=== PATIENT | male | born 1990 | race Caucasian/White ===

== ENCOUNTER 2023-04-24 08:01 | Outpatient (REF) | payer OTHER, SELFPAY ==
[2023-04-24 08:16] LABS: MANUAL DIFF FLAG NO
[2023-04-24 08:43] LABS: Basophils Percent Auto 0.3 % (0-2); Eosinophils Absolute Auto 0.2 X10*3/uL (0.0-0.4); Eosinophils Percent Auto 3.4 % (0-4); Hematocrit 39.6 % (42.0-52.0); Imm Gran Abs Auto 0.02 X10*3/uL (0.00-0.03); Imm Gran Pct Auto 0.3 % (0.0-0.4); Lymphocytes Absolute Auto 2.4 X10*3/uL (1.2-4.9); Lymphocytes Percent Auto 36.4 % (20-40); Mean Corpuscular HGB Conc 35.4 g/dl (31.0-36.0); Mean Corpuscular Hemoglobin 32.3 pg (27.0-33.0); Mean Corpuscular Volume 91.5 fL (80.0-98.0); Mean Platelet Volume 11.2 fL (9.4-12.4); Monocytes Absolute Auto 0.6 X10*3/uL (0.1-1.2); Monocytes Percent Auto 9.8 % (2-11); Neutrophils Absolute Auto 3.3 x10*3/uL (2.0-8.3); Neutrophils Percent Auto 49.8 % (45-73); Platelet Count 173 X10*3/uL (160-400); Red Blood Count 4.33 X10*6/uL (4.60-5.80); Red Cell Distribution Width 11.9 % (11.0-16.0); White Blood Count 6.6 X10*3/uL (4.8-10.8)
[2023-04-24 08:51] LABS: Amphetamine Screen Urine Not Detected (Not Detect); Barbiturates, Urine Not Detected (Not Detect); Benzodiazepines Screen Urine Not Detected (Not Detect); Cannabinoid Screen Urine POSITIVE (Not Detect); Cocaine Screen Urine Not Detected (Not Detect); Estimated Average Glucose 94 mg/dL; Fentanyl, urine Not Detected (Not Detect); Hemoglobin A1c % 4.9 % (<6.0); Opiate Screen Urine Not Detected (Not Detect); Phencyclidine Screen Urine Not Detected (Not Detect)
[2023-04-24 09:11] LABS: Alanine Aminotransferase 52 U/L (0-40); Albumin Level 4.2 g/dL (3.5-5.0); Alkaline Phosphatase 72 U/L (39-117); Anion Gap 11 (12-20); Aspartate Amino Transferase 51 U/L (5-37); Bilirubin Total 0.5 mg/dL (0.0-1.0); Blood Urea Nitrogen 13 mg/dL (9-16); Calcium 9.5 mg/dL (8.4-10.2); Carbon Dioxide 26 mmol/L (22-29); Chloride 104 mmol/L (96-108); Cholesterol 181 mg/dL (<200); Estimated Glomerular Filt Rate > 60; Glucose Fasting 93 mg/dL (60-99); HDL Cholesterol 81 mg/dL (>40); LDL Cholesterol Calculated 91 mg/dL (<100); Potassium 3.8 mmol/L (3.3-5.1); Sodium 137 mmol/L (135-145); Total Protein 7.2 g/dL (6.5-8.0); Triglycerides 49 mg/dL (<150)
[2023-04-24 09:23] LABS: Syphilis Screen Nonreactive (Nonreactive)
[2023-04-24 09:24] LABS: HBS Num1 27.15 mIU/mL (0-7.99); HBc Num1 0.09 S/CO (0.00-0.79); HBsAGNum1 0.25 S/CO (0.00-0.99); HIV AB/AG Nonreactive (Nonreactive); HIV Num 1 0.05 S/CO (0.00-0.99); Hepatitis B Core Antibody Nonreactive (Nonreactive); Hepatitis B Surface Antigen Negative (Negative); ~HepC Num1 0.09 S/CO (0.00-0.79); ~Hepatitis B Surface Antibody REACTIVE (Nonreactive); ~Hepatitis C Antibody Nonreactive (Nonreactive)
[2023-04-24 09:28] LABS: Vitamin B12 436 pg/mL (200-900)
[2023-04-24 09:30] LABS: Free T4 (Free Thyroxine) 0.99 ng/dL (0.71-1.85); Thyroid Stimulating Hormone 3.11 uIU/mL (0.32-4.0)
== END 2023-04-24 08:02 | disposition home or self-care (01) ==
LOC: HO.LAB 08:01
PROVIDERS: Visit Provider Psychiatry & Neurology Psychiatry
DX: F39 Unspecified mood [affective] disorder (principal)
CPT/HCPCS: 80053; 80061; 80307; 82607; 83036; 84439; 84443; 85025; 86704; 86706; 86780; 86803; 87340; 87389

== ENCOUNTER → 2023-04-25 11:45 | Outpatient (BNV) | payer OTHER, SELFPAY | PROVIDERS: Visit Provider Psychiatry & Neurology Psychiatry | DX: F31.81 Bipolar II disorder (principal); F43.10 Post-traumatic stress disorder, unspecified; F41.3 Other mixed anxiety disorders; F63.89 Other impulse disorders; F19.20 Other psychoactive substance dependence, uncomplicated | CPT/HCPCS: 90792; 99213; 99499 ==

== ENCOUNTER 2023-05-02 13:00 | Outpatient (RCR) | payer OTHER, SELFPAY ==
[2023-04-18 12:54] VITALS: BP 139/96; PULSE 102; RESP 12; TEMP 36.8
--- NOTE | 2023-04-18 14:24 | PC.NURSE ---
Pt is alert and oriented x 4, anxious, cooperative, engaging, well dressed and groomed. Pt states is currently not taking any medications and would like help with emotional imbalances and is looking for tools to succeed . Pt reports difficulty falling asleep with nightmares that will wake him. Pt reports decreased appetite without wt loss. Pt currently does not have a PCP, Psych Provider and is also interested in therapy. Pt reports has gone to AA in past and is willing to go again. Supports system is his significant other and cousin.
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
[2023-04-21 14:52] VITALS: BP 138/84; PULSE 100
--- NOTE | 2023-04-21 15:11 | HO.PHPPROGNO ---
Subjective Subjective Date of Service: 04/21/23 Reason For Visit: depression,AUD Interim History: Patient seen for follow-up. 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 I apologized for the misunderstanding as patient had agreed to consider starting on medication, as we had discussed a mood stabilizer (ABilify) in addition to starting on the prazosin for sleep/nightmares. He was understanding that I understood him taking the weekend to consider the medication options to include still considering whether to start on a sleep med. He was much less guarded today, much more forthcoming with his emotional struggles, he was tearful and earnest about the toll it has taken on him and his relationships as well as negatively impacting his functioning and ability to make any progress in life. He is agreeable to starting on Abilify, and we agreed to start very low (at 1 mg) given his naivete to medication. He denies any SI, HI, AH, VH. Attending Groups: Yes Review of Systems Acute medical concerns: No Mental Status Exam Mental Status Exam Narrative: Alert, oriented, in no acute distress. Eager, cooperative, engaged. Lively, animated, sometimes restless and asking permission to stand up. No psychomotor agitation or neurovegetative retardation. Eye contact maintained. Mood stressed depressed, affect labile. Speech abundant, without pressured or rapid speech, Thought process ruminative, circuitous, tangential without FOI or STEVEN, but sometimes unnecessarily descriptive style of speaking, requiring some redirection. No evidence of thought disorder. Thought content related to stressors, existential thoughts and angst, use of flowery/creative or overly intellectualized expressions and imagery. He expresses appreciation for people, interactions in groups, hopefulness, openness, also shares anxieties and some regrets, expresses feeling at times overwhelmed, emotionally dysregulated, overstimulated, underregulated attention, distractibility and executive dysfunction. Endorses transient hopelessness and helplessness, denies any passive SI or HI. No paranoia or delusional content elicited. No evidence of psychosis. Insight and judgment fair but adequate. Diagnostics Vital Signs (24Hr): Vital Signs - 24 hr 04/21/23 14:52 Pulse Rate 100 Blood Pressure 138/84 Assessment & Plan Assessment & Plan (1) Mood disorder: Status: Acute Code(s): F39 - Unspecified mood [affective] disorder (2) PTSD (post-traumatic stress disorder): Status: Acute Code(s): F43.10 - Post-traumatic stress disorder, unspecified (3) Polysubstance (excluding opioids) dependence: Status: Acute Code(s): F19.20 - Other psychoactive substance dependence, uncomplicated (4) Other impulse disorders: Status: Acute Code(s): F63.89 - Other impulse disorders (5) Other mixed anxiety disorders: Status: Acute Code(s): F41.3 - Other mixed anxiety disorders Plan start Abilify 2 mg (1/2 tablet for 2 days then increase to one tablet daily as tolerated) start prazosin 1 mg qhs patient declined pharmacological treatment for alcohol addiction. NTX, disulfarim, and other options reviewed Routine lab workand UDS pending (pt agrees to get lab work done after program today) Mass[place] reviewed conitnue to monitor Patient educated on: diagnosis, medication risk/benefits and substance abuse Informed Consent: understands Reason for contiued partial hosp. stay Substantial Risk for: inability to function, rapid decompensation and med/psych decompensation Certification I certify that partial hospital treatment is medically necessary due to the symptoms and problems resulting from the patient's mental illness and the failure to treat the patient at the partial hospital level of care would likely result in the patient requiring inpatient psychiatric care which could not be prevented at a less intensive level of care. Total time managing care of this patient today __30__ minutes. Discharge Plan Discharge Attending provider: Sybil Caicedo Additional Instructions: New PCP appointment with Dr Amna Sinclair on June 17, 2023 at 1:[address] [place] [address] [address]. [facility], [address]. Office Number [phone] Jasbir's OP therapy appointment with Dolores Ferrer through [facility] [place] [place] on May 05, 2023 at 11 AM at [address] [place] [address] in [place]. Jasbir's Med Management appointment, through [facility] [place], is on May 28, 2023 with Elias Valdes at 9 AM via telehealth. Medications: Continued aripiprazole 5 mg tablet 5 mg PO BEDTIME 30 Days Qty: 30 0RF aripiprazole 2 mg tablet 2 mg PO BEDTIME Qty: 30 0RF guanfacine 1 mg tablet extended release 24 hr 1 mg PO QAM Qty: 30 0RF Changed prazosin 1 mg capsule 1 - 2 mg PO BEDTIME PRN (Reason: Sleep) Qty: 60 0RF Stand Alone Forms: Patient Portal Discharge page Telehealth Telehealth Location of provider rendering services: other (private office) Location of patient: other ([facility]) Patient Identification confirmed using: Name, : Yes Telehealth method: video
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
--- NOTE | 2023-04-23 13:58 | PC.NURSE ---
New PCP appointment with Dr Amna Sinclair on June 17, 2023 at 1:30 PM. [address] [facility], [address]. [place], [address]. Office Number [phone]
--- NOTE | 2023-04-24 17:42 | HO.PHP ---
Client's case was opened and reviewed in treatment team.
--- NOTE | 2023-04-25 10:52 | HO.PHP ---
[facility] staff member sent a fax to [facility] Central Intake with the referral for OP therapy and med management for Jasbir. [facility] staff member is awaiting a phone call from [facility] with the scheduled dates and times.
--- NOTE | 2023-04-25 22:28 | PM.EVENT ---
Event Note Date of Service: 04/26/23 Event Note: Patient called from group to join me for meeting, but as we were heading into the staff hallway he saw a peer walk by and asked if he could meet with me later in the day because he wanted to join peer for a smoke break. He was not I could not find him at the end of program, apparently he left promtly. I was able to reach him to see about checking in with his recent medication changes, he said things were fine but was unable to talk currently. Will plan to follow up next week. Time Spent With Patient Time: Total time managing care of this patient today __10__ minutes.
--- NOTE | 2023-04-28 18:54 | P.PNPSP_ITS ---
Subjective Subjective Date of Service: 04/28/23 Reason For Visit: depression,AUD Interim History: Sleep meds are rad He finds the prazosin has been helpful in settling him down for sleep and is now getting 4-6 hours of sleep. Reported 'night terrors' persist but not as much and they are not waking him anymore. He has been tolerating the ABilify and says overall he has been feeling calmer. Went to [facility] over the weekend and didn't get wiggley (overstimulated and hyper) and needing to leave, was able to be more present in the moment. He says people have noticed positive changes in him, that he's coming back . I got my voice back, I'm getting my eyes back . He's trying to be more honest and open about how he is doing and being more honest with those around him. Denies any SI, HI. No AVH or psych sx. He shares many anecdotes from childhood experiences and struggles with conduct, chronic difficulties with listening and paying attention in class which were always remarks made on papers and report cards. He struggles academically and was incapable of turning assignments in on time or ever doing homework. He was gregarious, affable and generally well-liked by peers and teachers. There were often comments that he was intelligent but confusion around why he struggled with attention and focus. He filled out an ASRS which we discussed in further detail. We discussed these long-standing attentional issues, emotional and behavioral dysregulation, and executive dysfunction, how these issues have negatively impacted far beyond school. How he struggles to seek and maintain employment and other ways it has contriubuted to functional impairment. If tolerating Abilify at 5-7 mg we will start modafinil low dose at 50 mg qam Medication Compliance: Yes Side effects from medications: No Attending Groups: Yes Review of Systems Acute medical concerns: No Mental Status Exam Mental Status Exam Narrative: Alert, oriented, in no acute distress. Eager, cooperative, engaged. Lively, animated, sometimes restless and asking permission to stand up. No psychomotor agitation or neurovegetative retardation. Eye contact maintained. Mood labile, affect variable, mostly bright, cheerful. Speech abundant, without pressured or rapid speech, Thought process ruminative, circuitous, tangential without FOI or STEVEN, but sometimes unnecessarily descriptive style of speaking, requiring some redirection. No evidence of thought disorder. Thought content related to stressors, existential thoughts and angst, use of flowery/creative or overly intellectualized expressions and imagery. He expresses appreciation for people, interactions in groups, hopefulness, openness, also shares anxieties and some regrets, expresses feeling at times overwhelmed, emotionally dysregulated, overstimulated, underregulated attention, distractibility and executive dysfunction. Endorses transient hopelessness, denies any passive SI or HI. No paranoia or delusional content elicited. No evidence of psychosis. Insight and judgment fair but adequate. Assessment & Plan Assessment & Plan (1) Mood disorder: Status: Acute Code(s): F39 - Unspecified mood [affective] disorder Assessment and Plan: Bipolar II rapid cycling vs MDD +/- SIMD, +/-ADHD, r/o cyclothymia (2) PTSD (post-traumatic stress disorder): Status: Acute Code(s): F43.10 - Post-traumatic stress disorder, unspecified (3) Other mixed anxiety disorders: Status: Acute Code(s): F41.3 - Other mixed anxiety disorders (4) Other impulse disorders: Status: Acute Code(s): F63.89 - Other impulse disorders (5) Polysubstance (excluding opioids) dependence: Status: Acute Code(s): F19.20 - Other psychoactive substance dependence, uncomplicated Plan increase Abilify to 5 mg qd (move to evening for now) continue prazosin 2 mg qhs start guanfacine ER 1 mg qAM will plan to start modafinil low dose at 50 mg qam in upcoming days we discussed support options including naltrexone vs acamprosate or disulfarim however patient declined. Also declined nicotine patch. continue to monitor Patient educated on: diagnosis, medication risk/benefits and substance abuse Informed Consent: understands Reason for contiued partial hosp. stay Substantial Risk for: inability to function and med/psych decompensation Certification I certify that partial hospital treatment is medically necessary due to the symptoms and problems resulting from the patient's mental illness and the failure to treat the patient at the partial hospital level of care would likely result in the patient requiring inpatient psychiatric care which could not be prevented at a less intensive level of care. Total time managing care of this patient today __30__ minutes. Discharge Plan Discharge Attending provider: Sybil Caicedo Additional Instructions: New PCP appointment with Dr Amna Sinclair on June 17, 2023 at 1:30 PM. [address] [facility], [address]. [facility], [address]. Office Number [phone] Medications: New prazosin 1 mg capsule 1 - 2 mg PO BEDTIME Qty: 20 0RF aripiprazole 2 mg tablet 2 mg PO BEDTIME Qty: 14 0RF aripiprazole 5 mg tablet 5 mg PO BEDTIME 30 Days Qty: 30 0RF guanfacine 1 mg tablet extended release 24 hr 1 mg PO QAM Qty: 14 0RF modafinil 100 mg tablet 50 - 100 mg PO QAM Qty: 10 0RF Stand Alone Forms: Patient Portal Discharge page
--- NOTE | 2023-05-01 12:46 | HO.PHP ---
[facility] staff member reached out to [facility] to gather appointment dates and times for Jasbir's OP therapy and med provider appointments. A voicemail was left, [facility] staff is awaiting a call back.
--- NOTE | 2023-05-01 15:47 | HO.PHP ---
[facility] staff received a phone call with Jasbir's OP therapy appointment with Dolores Ferrer on May 05, 2023 at [address] [place] [address], in [place]. Jasbir's Med Management appointment is on May 28, 2023 with Elias Valdes at 9 AM via telehealth.
--- NOTE | 2023-05-01 18:05 | HO.PHP ---
[facility] staff met with Jasbir, in which Jasbir disclosed that he was feeling anxious with tomorrow being his last day and would like an extension. PHP staff member explored with Jasbir his reasons for wanting to extend his time. Jasbir noted that he likes the structure of the program. PHP staff member informed him if he likes the structure of this program, she can make suggestions around IOP programs he can attend. Jasbir was receptive. PHP staff suggested contacting [facility] together. Jasbir noted he would like to do that on his own. [facility] staff was receptive and provided him with the numbers. PHP staff member acknowledged the strides Jasbir has made while in the program. Jasbir was receptive.
--- NOTE | 2023-05-02 21:56 | P.PNPSP_ITS ---
Subjective Subjective Date of Service: 05/02/23 Reason For Visit: depression,AUD Interim History: Patient seen for follow-up, anticipating discharge at the end of program today.? Reports no acute issues or concerns. Medication compliant, medications well- tolerated. Denies any adverse effects.? Mood is stable.? Denies any hopelessness or SI. Denies thoughts of harming self or others at this time. Denies any aggressive ideation or HI. Denies any paranoia or AH or VH. Sleep, appetite, energy stable. Mental Status Exam Mental Status Exam Narrative: Alert, oriented, in no acute distress. Eager, cooperative, engaged. Animated at moments. Presents much calmer, less fidgety. No psychomotor agitation or neurovegetative retardation. Eye contact maintained. Mood much better less depressed. Affect variable, calmer, less labile. Speech normal, Thought process ruminative, circuitous. No evidence of thought disorder. Thought content related to stressors. He expresses appreciation for people, interactions in groups. Future-oriented, denies any helplessness, hopelessness, or any SI or HI. No paranoia or delusional content elicited. No evidence of psychosis. Insight and judgment fair but adequate. Assessment & Plan Assessment & Plan (1) Bipolar II disorder, most recent episode rapid cycling: Status: Acute Code(s): F31.81 - Bipolar II disorder Assessment and Plan: Bipolar II rapid cycling +/- SIMD r/o MDD +/- SIMD, +/-ADHD r/o cyclothymia (2) PTSD (post-traumatic stress disorder): Status: Acute Code(s): F43.10 - Post-traumatic stress disorder, unspecified Assessment and Plan: complex PTSD (3) Other mixed anxiety disorders: Status: Acute Code(s): F41.3 - Other mixed anxiety disorders (4) Other impulse disorders: Status: Acute Code(s): F63.89 - Other impulse disorders (5) Polysubstance (excluding opioids) dependence: Status: Acute Code(s): F19.20 - Other psychoactive substance dependence, uncomplicated Plan [facility]charge from [facility] continue current medications will defer further medication management to outpatient provider Recent lab work was reviewed Follow up with psych provider Elias Manzo on May 28 at 9am Patient educated on: diagnosis, medication risk/benefits and substance abuse Informed Consent: understands Reason for contiued partial hosp. stay Substantial Risk for: stable for discharge Certification I certify that partial hospital treatment is medically necessary due to the symptoms and problems resulting from the patient's mental illness and the failure to treat the patient at the partial hospital level of care would likely result in the patient requiring inpatient psychiatric care which could not be prevented at a less intensive level of care. Total time managing care of this patient today __30__ minutes. Discharge Plan Discharge Attending provider: Sybil Caicedo Additional Instructions: New PCP appointment with Dr Amna Sinclair on June 17, 2023 at 1:[address] [place] [address], [address]. [facility], [id number]. Office Number [phone] Jasbir's OP therapy appointment with Dolores Ferrer through [facility] is on May 05, 2023 at 11 AM at [address] [place] [address], in [place]. Jasbir's Med Management appointment, through [facility], is on May 28, 2023 with Elias Valdes at 9 AM via telehealth. Medications: Continued aripiprazole 5 mg tablet 5 mg PO BEDTIME 30 Days Qty: 30 0RF aripiprazole 2 mg tablet 2 mg PO BEDTIME Qty: 30 0RF guanfacine 1 mg tablet extended release 24 hr 1 mg PO QAM Qty: 30 0RF Changed prazosin 1 mg capsule 1 - 2 mg PO BEDTIME PRN (Reason: Sleep) Qty: 60 0RF Stand Alone Forms: Patient Portal Discharge page
== END 2023-05-02 23:59 | disposition home or self-care (01) ==
LOC: HO.PHPA 13:00
PROVIDERS: Visit Provider Psychiatry & Neurology Psychiatry
DX: F39 Unspecified mood [affective] disorder (principal); F43.10 Post-traumatic stress disorder, unspecified; F41.3 Other mixed anxiety disorders; F63.89 Other impulse disorders; F19.20 Other psychoactive substance dependence, uncomplicated; Z79.899 Other long term (current) drug therapy
CPT/HCPCS: 90791; 90853

== ENCOUNTER → 2023-08-04 08:25 | Outpatient (BNVA) | payer SELFPAY | PROVIDERS: Visit Provider Internal Medicine | DX: Z02.79 Encounter for issue of other medical certificate (principal) ==